=== PATIENT | male | born 1970 ===

== ENCOUNTER 2020-09-05 11:50 | Observation (INO) ==
[2020-09-05] MEDS ORDERED: Ketorolac 30 MG/ML VIAL IVP ONE (12:54)
[2020-09-05 13:29] LABS: Basophils # 0.1 K/mcL (0.0-0.2); Basophils % 0.5 %; Eosinophils # 0.1 K/mcL (0.0-0.6); Eosinophils % 1.4 %; Immature Granulocytes % 0.2 % (0-4); Lymphocytes # 1.3 K/mcL (0.6-4.6); Lymphocytes % 12.3 %; Mean Corpuscular HGB Conc 34.3 g/dL (31.6-35.5); Mean Corpuscular Hemoglobin 31.1 pg (28.0-33.3); Mean Corpuscular Volume 90.7 fL (83.0-100.0); Mean Platelet Volume 10.3 fL (9.4-12.4); Monocytes # 1.3 K/mcL (0.0-1.3); Monocytes % 12.7 %; Neutrophils # 7.5 K/mcL (1.6-8.9); Platelet Count 182 K/mcL (140-400); Red Blood Count 3.86 M/mcL (4.19-5.50); Red Cell Distribution Width 12.8 % (11.5-14.5); Segmented Neutrophils % 72.9 %; White Blood Count 10.3 K/mcL (4.3-11.1)
[2020-09-05 13:50] LABS: BUN/Creatinine Ratio 11 (6-26); Blood Urea Nitrogen 12 mg/dL (6-20); Carbon Dioxide 26 mEq/L (23-29); Chloride 98 mEq/L (98-107); Glucose 123 mg/dL (70-105); Osmolality,Calculated 275 (280-300); Potassium 3.1 mEq/L (3.5-5.1); Sodium 132 mEq/L (136-145); eGFR For African Americans > 60 (> 60); eGFR For Non-African Americans > 60 (> 60)
[2020-09-05] MEDS ORDERED: POTASSIUM CHLORIDE IN 0.9%NACL 40 MEQ/1,000 ML IV.SOLN IV STA (13:50)
[2020-09-05] MEDS ORDERED: Vancomycin (wt based) 1,000 MG VIAL IV STA (14:27)
[2020-09-05] MEDS ORDERED: Piperacillin/Tazobactam 3.375 GM in 0.9 % Sodium Chloride Mini Bag 100 ML IVPB ONE (14:28)
[2020-09-05] MEDS ORDERED: Vancomycin 1,750 MG/517.5 ML IV.SOLN IVPB ONE (14:35)
[2020-09-05 16:36] LABS: C-Reactive Protein 165 mg/L (Less than 10)
[2020-09-05] MEDS ORDERED: 0.9 % Sodium Chloride 250 ML ONE (16:40)
[2020-09-05] MEDS ORDERED: Naloxone 0.4 MG/ML INJ IVP PRN (16:58)
[2020-09-05] MEDS ORDERED: Ondansetron 4 MG/2 ML VIAL IVP PRN (16:58)
[2020-09-05] MEDS ORDERED: Melatonin 3 MG TABLET PO PRN (16:58)
[2020-09-05] MEDS ORDERED: Acetaminophen 325 MG TABLET PO PRN (16:58)
[2020-09-05] MEDS ORDERED: Isovue-370 500 ML BOTTLE IVP ONE (17:04)
[2020-09-05] MEDS ORDERED: Ketorolac 15 MG/ML VIAL IVP PRN (17:25)
[2020-09-05] MEDS ORDERED: D5% in Water 1,000 ML IVC PRN (17:33)
[2020-09-05] MEDS ORDERED: Dextrose Gel 15 GM/37.5 ML TUBE PO PRN ×2 (17:33)
[2020-09-05] MEDS ORDERED: *HR* Dextrose 50 % in Water (Vial) 50 ML VIAL IVP PRN (17:33)
[2020-09-05] MEDS ORDERED: Ipratropium/Albuterol Neb 3 ML IH PRN (17:36)
[2020-09-05 17:47] LABS: INR 1.3; Prothrombin Time 14.9 Seconds (9.4-12.1)
[2020-09-05 17:54] LABS: Acetaminophen < 10 mcg/mL (10-20); Ethanol < 10 mg/dL (Less than 10); Salicylate < 2.5 mg/dL (15.0-30.0)
[2020-09-05 18:34] LABS: Hepatitis B Surface Antigen Nonreactive (Nonreactive)
[2020-09-05 19:03] LABS: HIV-1&2 Antibody & p24 Ag Nonreactive (Nonreactive)
[2020-09-05 19:04] LABS: Hepatitis C Virus Antibody Nonreactive (Nonreactive)
[2020-09-05 19:05] LABS: Hepatitis B Core IgM Nonreactive (Nonreactive)
[2020-09-05 19:12] LABS: Hepatitis A Antibody IgM Nonreactive (Nonreactive)
[2020-09-05] MEDS: Ketorolac 15 MG/ML VIAL IVP SCH ×2 (20:42→23:48)
[2020-09-05] MEDS: *HR* Heparin 5,000 UNIT/ML VIAL SQ SCH (20:42)
[2020-09-05] MEDS: predniSONE 10 MG TABLET PO SCH (20:43)
[2020-09-05] MEDS: Ringers Solution, Lactated 1,000 ML IVC SCH (20:43)
[2020-09-05] MEDS: Chlorhexidine Rinse 15 ML MOUTHWASH MM SCH (20:43)
[2020-09-05] MEDS ORDERED: Piperacillin/Tazobactam 4.5 GM in Water for inj. (sterile) 20 ML IVP SCH (22:00)
[2020-09-05 22:10] LABS: Amphetamine Screen,Urine Positive ng/mL (Cutoff=1000); Barbiturate Screen,Urine Negative ng/mL (Cutoff=200); Benzodiazepines Screen,Urine Negative ng/mL (Cutoff=200); Cannabinoid Screen,Urine Negative ng/mL (Cutoff = 50); Cocaine Screen,Urine Negative ng/mL (Cutoff= 300); Opiate Screen,Urine Negative ng/mL (Cutoff=300); Phencyclidine Screen,Urine Negative ng/mL (Cutoff=25)
[2020-09-05 22:55] LABS: Bilirubin,Urine Negative (Negative); Blood,Urine Negative (Negative); Clarity,Urine Clear (Clear); Color,Urine Light-Yellow (Yellow); Glucose,Urine (UA) Normal (Normal); Ketones,Urine Negative (Negative); Leukocyte Esterase,Urine Negative (Negative); Nitrite,Urine Negative (Negative); Protein,Urine Trace mg/dL (Neg-Trace); Specific Gravity,Urine 1.027 (1.010-1.025); Urobilinogen,Urine Normal (Normal)
[2020-09-05] MEDS: Piperacillin/Tazobactam 3.375 GM in 0.9 % Sodium Chloride Mini Bag 100 ML IVPB SCH (23:48)
[2020-09-06] MEDS ORDERED: Vancomycin (wt based) 1,000 MG VIAL IV SCH ×2 (02:00→04:00)
[2020-09-06 03:16] LABS: Basophils # 0.1 K/mcL (0.0-0.2); Eosinophils # 0.4 K/mcL (0.0-0.6); Eosinophils % 4.8 %; Hematocrit 33.8 % (37.5-50.1); Immature Granulocytes % 0.4 % (0-4); Lymphocytes # 1.7 K/mcL (0.6-4.6); Lymphocytes % 23.7 %; Mean Corpuscular HGB Conc 32.5 g/dL (31.6-35.5); Mean Corpuscular Volume 92.1 fL (83.0-100.0); Mean Platelet Volume 10.3 fL (9.4-12.4); Monocytes # 0.9 K/mcL (0.0-1.3); Monocytes % 12.3 %; Neutrophils # 4.2 K/mcL (1.6-8.9); Platelet Count 176 K/mcL (140-400); Red Blood Count 3.67 M/mcL (4.19-5.50); Red Cell Distribution Width 12.7 % (11.5-14.5); Segmented Neutrophils % 57.8 %; White Blood Count 7.3 K/mcL (4.3-11.1)
[2020-09-06 03:36] LABS: Alanine Aminotransferase 10 Units/L (7-52); Albumin 3.3 g/dL (3.5-5.7); Albumin/Globulin Ratio 1.2 (1.1-2.2); Alkaline Phosphatase 58 Units/L (34-104); Aspartate Amino Transferase 11 Units/L (13-39); BUN/Creatinine Ratio 11 (6-26); Bilirubin,Total 0.9 mg/dL (0.3-1.0); Blood Urea Nitrogen 13 mg/dL (6-20); Calcium 8.7 mg/dL (8.6-10.3); Carbon Dioxide 27 mEq/L (23-29); Chloride 102 mEq/L (98-107); Globulin 2.7 g/dL (2.4-3.5); Glucose 114 mg/dL (70-105); Magnesium 1.9 mg/dL (1.6-2.6); Osmolality,Calculated 283 (280-300); Phosphorous 3.1 mg/dL (2.7-4.5); Potassium 3.2 mEq/L (3.5-5.1); Sodium 136 mEq/L (136-145); eGFR For African Americans > 60 (> 60); eGFR For Non-African Americans > 60 (> 60)
[2020-09-06] MEDS: Vancomycin 1,750 MG/517.5 ML IV.SOLN IVPB SCH ×2 (03:39→15:53)
[2020-09-06 03:55] LABS: % Iron Saturation 7 % (20-55); Iron 17 mcg/dL (65-175); Transferrin 164 mg/dL (203-362)
[2020-09-06 04:14] LABS: Ferritin 187 ng/mL (20-250)
[2020-09-06 04:57] LABS: Adenovirus Not Detected (Not Detect); Bordetella Pertussis Not Detected (Not Detect); Chlamydophila pneumoniae Not Detected (Not Detect); Coronavirus 229E Not Detected (Not Detect); Coronavirus HKU1 Not Detected (Not Detect); Coronavirus NL63 Not Detected (Not Detect); Coronavirus OC43 Not Detected (Not Detect); Human Metapneumovirus Not Detected (Not Detect); Human Rhinovirus/Enterovirus Not Detected (Not Detect); Influenza A Subtype 2009 H1 Not Detected (Not Detect); Influenza B Not Detected (Not Detect); Mycoplasma pneumoniae Not Detected (Not Detect); Parainfluenza Virus 1 Not Detected (Not Detect); Parainfluenza Virus 2 Not Detected (Not Detect); Parainfluenza Virus 3 Not Detected (Not Detect); Parainfluenza Virus 4 Not Detected (Not Detect); Respiratory Syncytial Virus Not Detected (Not Detect); SARS-CoV-2 Not Detected (Not Detect)
[2020-09-06] MEDS: Ketorolac 15 MG/ML VIAL IVP SCH ×3 (05:37→15:55)
[2020-09-06] MEDS: *HR* Heparin 5,000 UNIT/ML VIAL SQ SCH ×2 (05:37→15:55)
[2020-09-06] MEDS ORDERED: Iron Sucrose Complex 400 MG in 0.9 % Sodium Chloride 250 ML IVPB ONE (07:58)
[2020-09-06] MEDS: Piperacillin/Tazobactam 3.375 GM in 0.9 % Sodium Chloride Mini Bag 100 ML IVPB SCH ×3 (08:26→23:02)
[2020-09-06] MEDS: predniSONE 10 MG TABLET PO SCH (08:28)
[2020-09-06] MEDS: Chlorhexidine Rinse 15 ML MOUTHWASH MM SCH ×2 (08:28→20:48)
[2020-09-06] MEDS: Insulin LISPRO 300 UNITS/3 ML VIAL SUBQ SCH ×3 (08:28→16:10)
[2020-09-06] MEDS: Multivit/Ca/Min/Fe/FA 1 TAB TABLET PO SCH (08:29)
[2020-09-06] MEDS ORDERED: predniSONE 10 MG TABLET PO SCH (09:00)
[2020-09-06 09:02] LABS: Estimated Average Glucose 105 mg/dl; Hemoglobin A1C 5.3 %
[2020-09-06] MEDS ORDERED: SODIUM CHLORIDE 0.9% INTRAART ONE (12:36)
[2020-09-06] MEDS ORDERED: IOPAMIDOL INTRAART ONE (12:36)
[2020-09-06] MEDS ORDERED: Isovue-300 50ML VIAL INTRAART ONE (12:40)
[2020-09-06 12:58] LABS: Source,Synovial Fluid L knee
[2020-09-06 17:41] LABS: Lymphocytes,Synovial Fluid 0 %
[2020-09-06 17:44] LABS: Appearance,Synovial Fluid Cloudy (Clear-Hazy); Color,Synovial Fluid Straw (Straw)
[2020-09-06] MEDS: Gabapentin 400 MG CAPSULE PO SCH (20:46)
[2020-09-06] MEDS: Ringers Solution, Lactated 1,000 ML IVC SCH (21:31)
[2020-09-07] MEDS: Ketorolac 15 MG/ML VIAL IVP SCH ×2 (00:22→06:05)
[2020-09-07 02:19] LABS: Hematocrit 31.9 % (37.5-50.1); Mean Corpuscular HGB Conc 34.5 g/dL (31.6-35.5); Mean Corpuscular Hemoglobin 31.3 pg (28.0-33.3); Mean Corpuscular Volume 90.6 fL (83.0-100.0); Mean Platelet Volume 10.3 fL (9.4-12.4); Platelet Count 196 K/mcL (140-400); Red Blood Count 3.52 M/mcL (4.19-5.50); Red Cell Distribution Width 12.7 % (11.5-14.5)
[2020-09-07 02:38] LABS: Vancomycin,Trough 8 mcg/mL (5-10)
[2020-09-07] MEDS: Vancomycin 1,750 MG/517.5 ML IV.SOLN IVPB SCH (03:05)
[2020-09-07] MEDS: *HR* Heparin 5,000 UNIT/ML VIAL SQ SCH (06:05)
[2020-09-07] MEDS: Piperacillin/Tazobactam 3.375 GM in 0.9 % Sodium Chloride Mini Bag 100 ML IVPB SCH (06:28)
[2020-09-07 07:33] VITALS: BP 128/76
[2020-09-07] MEDS ORDERED: carvediloL 6.25 MG TABLET PO SCH (08:00)
[2020-09-07] MEDS: Multivit/Ca/Min/Fe/FA 1 TAB TABLET PO SCH (08:42)
[2020-09-07] MEDS: predniSONE 10 MG TABLET PO SCH (08:42)
[2020-09-07] MEDS: Gabapentin 400 MG CAPSULE PO SCH (08:42)
[2020-09-07] MEDS: Insulin LISPRO 300 UNITS/3 ML VIAL SUBQ SCH (08:43)
[2020-09-07] MEDS: Chlorhexidine Rinse 15 ML MOUTHWASH MM SCH (08:47)
[2020-09-07] MEDS ORDERED: QUEtiapine Fumarate 100 MG TABLET PO SCH (09:00)
[2020-09-07 10:19] LABS: Magnesium 1.9 mg/dL (1.6-2.6); Phosphorous 2.7 mg/dL (2.7-4.5)
[2020-09-07 10:38] LABS: BUN/Creatinine Ratio 21 (6-26); Blood Urea Nitrogen 20 mg/dL (6-20); Calcium 8.8 mg/dL (8.6-10.3); Carbon Dioxide 28 mEq/L (23-29); Chloride 105 mEq/L (98-107); Glucose 115 mg/dL (70-105); Osmolality,Calculated 290 (280-300); Sodium 138 mEq/L (136-145); eGFR For African Americans > 60 (> 60); eGFR For Non-African Americans > 60 (> 60)
[2020-09-07] MEDS ORDERED: Vancomycin 2,000 MG/520 ML IV.SOLN IVPB SCH (13:00)
== END 2020-09-07 11:56 | disposition home or self-care (01) ==
LOC: SUATTDRO → EMEROOARM 11:50 → 3NENU 11:50 → SUATTDRO 18:35 → 3NENU 19:49
PROVIDERS: ADMIT Internal Medicine; ATTEND Internal Medicine